=== PATIENT | female | born 1985 | race Caucasian/White ===

== ENCOUNTER 2016-08-22 07:35 | Inpatient (IN) | payer OTHER ==
[2016-08-22] MEDS ORDERED: PROMETHAZINE HCL 25 MG/1 ML VIAL IVPUSH ONE (08:08)
[2016-08-22] MEDS ORDERED: BUTORPHANOL TARTRATE 1 MG/ML VIAL IVPB ONE (08:08)
[2016-08-22] MEDS ORDERED: OXYTOCIN 15 UNITS/ LR 250 ML 250 ML IVPB SCH (08:15)
--- NOTE | 2016-08-22 08:18 | HP ---
Past Medical History - Admission Chief Complaint: Here for labor induction History of Present Illness: 31 y/o with SIUP at 39.3 weeks gestation here for elective labor induction. Pt reports occasional cramping, no LOF/VB. +FM. uncomplicated. History Source: Patient, Medical Record - Past Medical History Cardiovascular: No: AFIB, HTN, MT Pulmonary: No: Asthma, COPD Gastrointestinal: No: GERD Renal/: No: UTI Reproductive: No: Ectopic , Fibroids, PID ...: 1 ...Para: 0 ...Term: 0 ...: 1 ...Spon : 0 ...Induced : 0 Heme/Onc: Yes: Anemia Infectious Disease: No: HIV, MRSA Psych: No: Bipolar, Depression - Past Surgical History Past Surgical History: Yes: None (iup at 36 weeks with premature rupture of membranes. plan to admit to l&d monitor and deliver) Hx Myomectomy: No Hx Transabdominal Cerclage: No - Smoking History Smoking history: Never smoked Have you smoked in the past 12 months: No - Alcohol/Substance Use Hx Alcohol Use: No - Social History ADL: Independent History of Recent Travel: No Home Medications - Allergies Allergies/Adverse Reactions: Allergies Allergy/AdvReac Type Severity Reaction Status Date / Time sulfamethoxazole Allergy Swelling Verified 10/29/14 03:42 [From Bactrim] trimethoprim [From Bactrim] Allergy Swelling Verified 10/29/14 03:42 - Home Medications Home Medications: Ambulatory Orders Vit/Iron Fumarate/FA [ Tablet] 1 tab PO DAILY 10/29/14 Physical Exam - Maternity Vital Signs: Vital Signs Temperature 98 F 08/22/16 08:00 Pulse Rate 88 08/22/16 08:00 Respiratory Rate 20 08/22/16 08:00 Blood Pressure 93/58 08/22/16 08:00 O2 Sat by Pulse Oximetry (%) Constitutional: Yes: Well Nourished, No Distress, Calm Eyes: Yes: Conjunctiva Clear, EOM Intact HENT: Yes: Atraumatic, Normocephalic Neck: Yes: Supple, Trachea Midline Cardiovascular: Yes: Regular Rate and Rhythm Lungs: Clear to auscultation - Abdominal Exam/OB Fundal Height: 39 Number of Fetuses: Single Presentation: Vertex Contractions: Yes Regularity: Irregular Intensity: Mild Monitor Mode: External Heart Rate (range): 135 Category: I Accelerations: Uniform Decelerations: None - Vaginal Exam/OB Vaginal Bleediing: No Amniotic Membrane Status: Intact - Physical Exam Psychiatric: Yes: Alert, Oriented Hemorrhage Risk Assessment - Risk Factors Medium Risk Factors: Yes: Prior , uterine surgery,or multiple laparotomies High Risk Factors: Yes: None Risk Score: 1 Risk Level: Medium Risk Problem List - Problems (1) Term Code(s): Z34.80 - ENCOUNTER FOR SUPRVSN OF NORMAL , UNSP TRIMESTER (2) History of delivery Code(s): Z98.89 - OTHER SPECIFIED POSTPROCEDURAL STATES * DO NOT USE * Assessment/Plan 31 y/o with SIUP at 39.3 weeks gestation for elective induction of labor - FHTS cat 1 - elective labor induction - plan for pitocin this a.m. - GBS negative
[2016-08-22] MEDS ORDERED: DEXTROSE 5%-LACTATED RINGERS 1,000 ML IV SCH (08:30)
[2016-08-22 08:50] VITALS: BMI 36.4
--- NOTE | 2016-08-22 09:03 | PN ---
Ante-Partal Exam - Subjective Vital Signs: Vital Signs Temperature 98 F 08/22/16 08:00 Pulse Rate 88 08/22/16 08:00 Respiratory Rate 20 08/22/16 08:00 Blood Pressure 93/58 08/22/16 08:00 O2 Sat by Pulse Oximetry (%) Bleeding: No Headache: No Visual changes: No Right upper quadrant pain: No - Contractions Contractions: Yes Regularity: Irregular Intensity: Mild - Exam during Labor Category: I Exam: Vaginal Dilatation (cm): 3.5 Effacement (%): 60 Amniotic Fluid: Clear Presentation: Vertex Station: -2 - Assessment/Plan Assessment/Plan: Pt AROM for clear fluid to start pitocin
[2016-08-22 09:40] LABS: BASOPHIL 0.5 % (0-2.0); EOSINOPHIL 0.9 % (0-4.5); MEAN CELL VOLUME 85.2 fl (80-96); MEAN PLT VOLUME 6.9 fl (7.5-11.1); NEUTROPHILS 74.1 % (42.8-82.8); PLATELET COUNT 286 K/MM3 (134-434); RDW 13.2 % (11.6-15.6); WHITE BLOOD COUNT 10.5 K/mm3 (4.0-10.0)
[2016-08-22 09:55] LABS: INR 1.02 (0.82-1.09); PROTHROMBIN TIME (PATIENT) 11.2 SEC (9.98-11.88)
[2016-08-22 09:58] LABS: ACTIVATED PTT 29.2 SECONDS (26.9-34.4)
[2016-08-22 10:25] LABS: CALCIUM 8.6 mg/dL (8.5-10.1); CREATININE 0.6 mg/dL (0.55-1.02)
[2016-08-22] MEDS ORDERED: TUBERCULIN PPD 5 TU/0.1ML SYRINGE (IN PATIENT USE ONLY) ID ONE (11:00)
--- NOTE | 2016-08-22 12:37 | PN ---
Delivery - Delivery Vaginal Delivery: No Problems Type of Anesthesia: Local Episiotomy/Laceration: None EBL (cc): 300 Delivery, Single - Stages of Labor Date of Delivery: 08/22/16 Time of Delivery: 12: Date Placenta Delivered: 08/22/16 Time Placenta Delivered: Placenta: Yes: Spontaneous - Condition of Turret Lathe Operator/Drag Down Present: No Gender: Female Position: Left, OA - 1 Minute Total Score: 9 5 Minutes Total Score: 9 - Feeding Plan Initial Plan: Exclusive throughout hospitalization Remarks - Remarks Remarks: Uncomplicated of baby girl from EJ position anterior shoulder (left) delivered with ease along with remainder of infant cord clamped and cut - 3VC noted placenta delivered spontaneously and in tact 2nd degree lac noted - repaired with 2-0 vicryl suture EBL 300cc sponge and needle count correct at end of delivery mom stable baby to well baby nursery
[2016-08-22] MEDS ORDERED: BENZOCAINE 28 GM HEMORRHOIDAL OINTMENT TP PRN (12:38)
[2016-08-22] MEDS ORDERED: BISACODYL 10 MG SUPP.RECT RC PRN (12:38)
[2016-08-22] MEDS ORDERED: WITCH HAZEL 50% (TUCKS) 40 PAD/JAR PAD TP PRN (12:38)
[2016-08-22] MEDS ORDERED: METHYLERGONOVINE MALEATE 0.2 MG/1 ML AMP IM PRN (12:38)
[2016-08-22] MEDS ORDERED: BENZOCAINE 20% 57 GM BOTTLE TP PRN (12:38)
[2016-08-22] MEDS ORDERED: D5W-LR W/ 20 UNITS OXYTOCIN 1,000 ML IV SCH (12:45)
[2016-08-22] MEDS: IBUPROFEN 600 MG TABLET (FP) PO PRN ×2 (13:40→18:13)
[2016-08-22] MEDS: ACETAMINOPHEN 325 MG TABLET (FP) PO PRN (13:41)
[2016-08-23] MEDS: ACETAMINOPHEN 325 MG TABLET (FP) PO PRN ×3 (01:03→23:02)
[2016-08-23] MEDS: IBUPROFEN 600 MG TABLET (FP) PO PRN ×3 (01:03→23:01)
[2016-08-23 07:32] LABS: BASOPHIL 0.7 % (0-2.0); EOSINOPHIL 1.2 % (0-4.5); MCH 28.7 pg (25.7-33.7); MCHC 33.2 g/dl (32.0-36.0); MEAN CELL VOLUME 86.2 fl (80-96); MEAN PLT VOLUME 7.2 fl (7.5-11.1); NEUTROPHILS 69.6 % (42.8-82.8); PLATELET COUNT 249 K/MM3 (134-434); RDW 13.2 % (11.6-15.6); WHITE BLOOD COUNT 13.9 K/mm3 (4.0-10.0)
--- NOTE | 2016-08-23 07:57 | PN ---
Post Progress Note - Subjective Subjective: 31 yo Para 2, status post , seen and evaluated. No complaints. Post Day: 1 Type of Delivery: Vital Signs: Vital Signs Temperature 97.7 F 08/23/16 06:00 Pulse Rate 56 L 08/23/16 06:00 Respiratory Rate 20 08/23/16 06:00 Blood Pressure 90/51 08/23/16 06:00 O2 Sat by Pulse Oximetry (%) 100 08/22/16 13:15 Breast Exam: Yes: Soft Uterus: Yes: Fundus Firm Abdomen/GI: Yes: Abdomen soft, Tolerating PO Lochia: Yes: Rubra Lochia, amount: Moderate Extremities: Yes: Calves non-tender Activity: Ambulating - Labs Labs: CBC WBC 13.9 K/mm3 (4.0-10.0) H D 08/23/16 06:45 RBC 3.69 M/mm3 (3.60-5.2) 08/23/16 06:45 Hgb 10.6 GM/dL (10.7-15.3) L D 08/23/16 06:45 Hct 31.9 % (32.4-45.2) L 08/23/16 06:45 MCV 86.2 fl (80-96) 08/23/16 06:45 MCHC 33.2 g/dl (32.0-36.0) 08/23/16 06:45 RDW 13.2 % (11.6-15.6) 08/23/16 06:45 Plt Count 249 K/MM3 (134-434) 08/23/16 06:45 MPV 7.2 fl (7.5-11.1) L 08/23/16 06:45 Neutrophils % 69.6 % (42.8-82.8) 08/23/16 06:45 Lymphocytes % 22.7 % (8-40) D 08/23/16 06:45 Monocytes % 5.8 % (3.8-10.2) 08/23/16 06:45 Eosinophils % 1.2 % (0-4.5) 08/23/16 06:45 Basophils % 0.7 % (0-2.0) 08/23/16 06:45 Problem List - Problems (1) History of vaginal delivery following previous delivery Code(s): Z87.42 - PERSONAL HISTORY OF OTH DISEASES OF THE FEMALE GENITAL TRACT Assessment/Plan Status post Stable Continue routine care
[2016-08-23] MEDS: PRENATAL VITAMINS W/ FOLIC ACID TABLET (FP) PO SCH (09:44)
[2016-08-23] MEDS ORDERED: SENNOSIDES/DOCUSATE COMBO (SENNA PLUS) TABLET (UD) PO PRN (22:00)
[2016-08-24 08:34] VITALS: BP 101/54; PULSE 62; TEMP 97.6
[2016-08-24] MEDS: PRENATAL VITAMINS W/ FOLIC ACID TABLET (FP) PO SCH (10:10)
--- NOTE | 2016-08-24 12:55 | DS ---
Physical Exam-DRY WALL INSTALLATIONS MECHANIC Vital Signs: Vital Signs Temperature 97.6 F 08/24/16 08:33 Pulse Rate 62 08/24/16 08:33 Respiratory Rate 20 08/24/16 08:33 Blood Pressure 101/54 08/24/16 08:33 O2 Sat by Pulse Oximetry (%) 100 08/22/16 13:15 Constitutional: Yes: Well Nourished, No Distress, Calm Eyes: Yes: Conjunctiva Clear, EOM Intact HENT: Yes: Atraumatic, Normocephalic Neck: Yes: Supple, Trachea Midline Cardiovascular: Yes: Regular Rate and Rhythm Respiratory: Yes: Regular, CTA Bilaterally Gastrointestinal: Yes: Normal Bowel Sounds, Soft ....Post : Yes: Uterus firm, Uterus non-tender Breast(s): Yes: WNL Musculoskeletal: Yes: WNL Extremities: Yes: WNL Neurological: Yes: Alert, Oriented Psychiatric: Yes: Alert, Oriented Labs: CBC, BMP 08/23/16 06:45 08/22/16 09:27 Delivery - Delivery Vaginal Delivery: No Problems Type of Anesthesia: Local Episiotomy/Laceration: None EBL (cc): 300 Delivery, Single - Stages of Labor Date 1st Stage Initiatied: 08/22/16 Time 1st Stage Initiated: 10:00 Date 2nd Stage Initiated: 08/22/16 Time 2nd Stage Initiated: 12:00 Date of Delivery: 08/22/16 Time of Delivery: 12:17 Time Placenta Delivered: 12:21 Placenta: Yes: Spontaneous - Condition of Infant Cellular Equipment Repairer/Security Shift Manager Present: No Infant Gender: Female Weight: 7 lb 5 oz Position: Left, OA Total Hours ROM (Hrs/Mins): 10/21 - 1 Minute Total Score: 9 5 Minutes Total Score: 9 - [place] Feeding Plan Initial Plan: Exclusive throughout hospitalization Discharge Summary Reason For Visit: INDUCTION OF LABOR Current Active Problems History of delivery (Acute) History of vaginal delivery following previous delivery (Acute) Term (Acute) Procedures: Principal: Normal Other Procedures: N/A Hospital Course: Patient admitted on 08/22 for labor induction. Membranes were artificially ruptured and pitocin was started, patient underwent normal on 08/22/16. Patient had unremarkable post recovery and was discharged home in stable condition on post day 2. Condition: Good - Instructions Diet, Activity, Other Instructions: Physical activity Resume your normal everyday activity as tolerated no heavy lifting or exercise until seen by your surgeon. You may walk unlimited joan of and climb stairs. You may resume driving the car when you feel safe and comfortable behind the wheel. No sexual activity as instructed. Wound care If you have a bandage, leave it on, and keep dry for 48-72 hours. After that time, discard the outer bandage. If there are tapes on the skin under the out of bandage leave them in place. They will peel off in the next 7 to 10 days. Do Not Peel them off. You may shower the day after surgery. If there are tapes present on the skin, you may shower over them. Diet There are no dietary restrictions. Eat healthy, high-fiber foods. Drink 6 to 8 glasses of liquid each day. This will assist in keeping your bowels regular. Pain management You may take Tylenol or Ibuprofen over the counter for pain. Call MD for any of the following: Severe pain not relieved by medication Fever of 101 or higher Excessive bleeding or drainage Inability to urinate Referrals: Tesha Gutiérrez DO [Staff Physician] - Disposition: HOME - Home Medications Comprehensive Discharge Medication List: Ambulatory Orders Ibuprofen [Motrin -] 600 mg PO QID PRN #28 tablet 08/23/16
== END 2016-08-24 18:00 | disposition home or self-care (01) | DRG 775 ==
LOC: JLDR 07:35 → J3W 14:23
PROVIDERS: ADMIT Obstetrics & Gynecology; ATTEND Obstetrics & Gynecology
PROC: 0KQM0ZZ Repair Perineum Muscle, Open Approach (ICD-10-PCS; principal; 2016-08-22)
PROC: 10E0XZZ Delivery of Products of Conception, External Approach (ICD-10-PCS; 2016-08-22)
DX: O70.1 Second degree perineal laceration during delivery (principal); Z37.0 Single live birth; O34.211 Maternal care for low transverse scar from previous cesarean delivery; Z3A.39 39 weeks gestation of pregnancy
CPT/HCPCS: 36415; 59409; 80048; 85025; 85610; 85730; 86593; 86850; 86900; 86901